=== PATIENT | female | born 1945 | race Caucasian/White ===

== ENCOUNTER 2018-04-14 08:19 | Day surgery (SDC) | payer OTHER, MEDICARE ==
[2018-04-09 13:35] VITALS: BMI 19.1
[2018-04-14] MEDS ORDERED: PROPOFOL 20 ML ONE ×2 (08:59→10:34)
[2018-04-14] MEDS ORDERED: LIDOCAINE HCL/PF 2% SDV 5ML VIAL ONE (09:59)
[2018-04-14 11:24] VITALS: BP 120/70; PULSE 76; TEMP 98
== END 2018-04-14 11:25 | disposition home or self-care (01) ==
LOC: FASU-ENDO 08:19
PROVIDERS: ATTEND Internal Medicine Gastroenterology
PROC: 0DJD8ZZ Inspection of Lower Intestinal Tract, Via Natural or Artificial Opening Endoscopic (ICD-10-PCS; principal; 2018-04-14 09:45)
DX: Z12.11 Encounter for screening for malignant neoplasm of colon (principal); Z80.0 Family history of malignant neoplasm of digestive organs; K57.30 Diverticulosis of large intestine without perforation or abscess without bleeding; K58.9 Irritable bowel syndrome, unspecified

== ENCOUNTER 2021-08-14 16:18 | Emergency (ER) | payer OTHER, MEDICARE ==
[2021-08-14 16:57] VITALS: BP 138/72; PULSE 109; TEMP 99; BMI 18.6
[2021-08-14 17:13] LABS: EPITHELIAL CELLS FEW /hpf
== END 2021-08-14 17:16 | disposition home or self-care (01) ==
LOC: FER 16:18
DX: N89.8 Other specified noninflammatory disorders of vagina (principal)
CPT/HCPCS: 81003; 81015; 87086; 87186; 99283-25

== ENCOUNTER 2022-06-04 14:27 | Emergency (ER) | payer OTHER, MEDICARE ==
[2022-06-04] MEDS ORDERED: ACETAMINOPHEN 1000 MG/100 ML BAG IVPB ONE (14:48)
[2022-06-04] MEDS ORDERED: SODIUM CHLORIDE 0.9% 1000 ML INFUS.BAG IV ONE (14:48)
[2022-06-04 14:59] VITALS: BP 139/85; PULSE 113; RESP 16; TEMP 98.9; BMI 17.2
[2022-06-04 15:18] LABS: HEMATOCRIT 31.4 % (32.4-45.2); HEMOGLOBIN 10.5 G/dL (10.7-15.3); MCH 29.8 pg (25.7-33.7); MCHC 33.5 g/dl (32.0-36.0); MEAN CELL VOLUME 88.9 fl (80-96); MEAN PLT VOLUME 7.4 fl (7.5-11.1); PLATELET COUNT 283.8 10^3/uL (134-434); RBC 3.53 10^6/uL (3.60-5.2); WHITE BLOOD COUNT 11.2 10^3/uL (4.0-10.8)
[2022-06-04 15:23] LABS: ALBUMIN 3.2 g/dl (3.4-5.0); BILIRUBIN,TOTAL 0.5 mg/dl (0.2-1); CALCIUM 9.1 mg/dl (8.5-10); CREATININE 0.6 mg/dl (0.55-1.3); TOT PROT 6.7 g/dl (6.4-8.2)
== END 2022-06-04 17:30 | disposition home or self-care (01) ==
LOC: FER 14:27
PROC: 3E0333Z Introduction of Anti-inflammatory into Peripheral Vein, Percutaneous Approach (ICD-10-PCS; principal; 2022-06-04)
DX: K52.9 Noninfective gastroenteritis and colitis, unspecified (principal)
CPT/HCPCS: 0241U-QW; 36415; 74177-TC; 80053; 85027; 99285-25; Q9967

== ENCOUNTER 2022-07-12 08:28 | Day surgery (SDC) | payer OTHER, MEDICARE ==
[2022-07-09 15:51] VITALS: BMI 17.9
[2022-07-12 10:06] VITALS: TEMP 98
[2022-07-12 10:32] VITALS: RESP 18
[2022-07-12 10:34] VITALS: BP 130/70; PULSE 82
== END 2022-07-12 10:58 | disposition home or self-care (01) ==
LOC: FASU-ENDO 08:28
PROVIDERS: ATTEND Internal Medicine Gastroenterology
PROC: 0DBN8ZX Excision of Sigmoid Colon, Via Natural or Artificial Opening Endoscopic, Diagnostic (ICD-10-PCS; 2022-07-12)
PROC: 0DBP8ZX Excision of Rectum, Via Natural or Artificial Opening Endoscopic, Diagnostic (ICD-10-PCS; principal; 2022-07-12 09:31)
DX: K57.30 Diverticulosis of large intestine without perforation or abscess without bleeding (principal); K62.89 Other specified diseases of anus and rectum; R19.7 Diarrhea, unspecified; R19.4 Change in bowel habit
CPT/HCPCS: 87324; 87449; 88305-TC

== ENCOUNTER 2022-11-12 12:29 | Emergency (ER) | payer OTHER, MEDICARE ==
[2022-11-12 12:34] VITALS: BP 136/77; PULSE 92; RESP 18; TEMP 99; BMI 17.1
[2022-11-12] MEDS ORDERED: SODIUM CHLORIDE 1,000 ML IV STA (13:01)
[2022-11-12 13:38] LABS: HEMATOCRIT 33.7 % (32.4-45.2); HEMOGLOBIN 10.8 G/dL (10.7-15.3); MCH 28.5 pg (25.7-33.7); MCHC 32.2 g/dl (32.0-36.0); MEAN CELL VOLUME 88.6 fl (80-96); MEAN PLT VOLUME 7.9 fl (7.5-11.1); PLATELET COUNT 261.4 10^3/uL (134-434); RDW 17.8 % (11.6-15.6); WHITE BLOOD COUNT 9.5 10^3/uL (4.0-10.8)
[2022-11-12 13:48] LABS: ALBUMIN 3.9 g/dl (3.4-5.0); BILIRUBIN,TOTAL 0.4 mg/dl (0.2-1); BLOOD UREA NITROGEN 12.8 mg/dl (7-18); CALCIUM 9.1 mg/dl (8.5-10.1); CREATININE 0.7 mg/dl (0.6-1.3); POTASSIUM 4.1 mmol/L (3.5-5.1); SGOT/AST 19.5 U/L (15-37); SGPT/ALT 11.4 U/L (7-52); TOT PROT 6.9 g/dl (6.4-8.2)
== END 2022-11-12 15:15 | disposition home or self-care (01) ==
LOC: FER 12:29
PROC: 3E0337Z Introduction of Electrolytic and Water Balance Substance into Peripheral Vein, Percutaneous Approach (ICD-10-PCS; principal; 2022-11-12)
DX: R19.7 Diarrhea, unspecified (principal); E86.0 Dehydration; R68.2 Dry mouth, unspecified
CPT/HCPCS: 36415; 80053; 85027

== ENCOUNTER 2022-11-24 12:49 | Emergency (ER) | payer OTHER, MEDICARE ==
[2022-11-24 13:08] VITALS: BP 150/75; PULSE 80; RESP 16; TEMP 98.6; BMI 17.1
[2022-11-24 13:53] LABS: EPITHELIAL CELLS FEW /hpf
[2022-11-24 15:30] LABS: HEMOGLOBIN 11.2 G/dL (10.7-15.3); MCH 29.2 pg (25.7-33.7); MCHC 32.8 g/dl (32.0-36.0); MEAN CELL VOLUME 88.9 fl (80-96); MEAN PLT VOLUME 6.6 fl (7.5-11.1); PLATELET COUNT 325.9 10^3/uL (134-434); RBC 3.82 10^6/uL (3.60-5.2); RDW 17.8 % (11.6-15.6); WHITE BLOOD COUNT 8.5 10^3/uL (4.0-10.8)
[2022-11-24 16:14] LABS: PLATELET ESTIMATE INCREASED
[2022-11-24 16:35] LABS: BILIRUBIN,TOTAL 0.4 mg/dl (0.2-1); BLOOD UREA NITROGEN 18.2 mg/dl (7-18); CALCIUM 9.6 mg/dl (8.5-10.1); CREATININE 0.7 mg/dl (0.6-1.3); POTASSIUM 4.4 mmol/L (3.5-5.1); SGOT/AST 16.2 U/L (15-37); SGPT/ALT 9.5 U/L (7-52); TOT PROT 6.9 g/dl (6.4-8.2)
[2022-11-24] MEDS ORDERED: PHENAZOPYRIDINE HCL 100 MG TABLET (FP) PO ONE (17:04)
[2022-11-24] MEDS ORDERED: PHENAZOPYRIDINE HCL 100 MG TABLET (FP) ONE (17:25)
== END 2022-11-24 17:36 | disposition home or self-care (01) ==
LOC: FER 12:49
DX: N30.90 Cystitis, unspecified without hematuria (principal)
CPT/HCPCS: 36415; 80053; 81003; 81015; 85025; 87086; 99283-25